=== PATIENT | female | born 1985 | race American Indian/Alaskan Native ===

== ENCOUNTER 2020-07-11 21:33 | Outpatient (CLI) | payer OTHER ==
[2020-07-11 21:58] VITALS: BP 113/78
[2020-07-11] MEDS ORDERED: LACTATED RINGERS 1,000 ML IV ONE (22:31)
[2020-07-11] MEDS ORDERED: TERBUTALINE 1 MG/1 ML INJ SUB-Q ONE (22:34)
[2020-07-11 23:41] LABS: Bacteria,Urine 2+ /HPF (Negative); Bilirubin,Urine NEG (Negative); Blood,Urine LG (Negative); Color,Urine Yellow (Yellow); Mucus,Urine FEW /HPF; Urobilinogen,Urine < 2.0 mg/dL (<2.0)
[2020-07-11 23:58] LABS: WBC,Urine > 182.0 /HPF (0.0-6.0)
[2020-07-12] MEDS ORDERED: TERBUTALINE 1 MG/1 ML INJ SUB-Q ONE (01:15)
== END 2020-07-12 02:45 | disposition home or self-care (01) ==
LOC: TRG 21:33 → APU 21:35 → TRG 07-12 02:45
PROVIDERS: ATTEND Obstetrics & Gynecology
DX: O47.03 False labor before 37 completed weeks of gestation, third trimester (principal); Z3A.34 34 weeks gestation of pregnancy
CPT/HCPCS: 59025; 81001; 96360; 96365; 96372; J0690; J3105; J7120

== ENCOUNTER 2020-08-07 03:00 | Inpatient (IN) | payer OTHER ==
[2020-08-07] MEDS ORDERED: TERBUTALINE 1 MG/1 ML INJ SUB-Q PRN (04:27)
[2020-08-07] MEDS ORDERED: LIDOCAINE (2%) 20 MG/1 ML VIAL 20 ML MDV INFILTRATI ONE (04:27)
[2020-08-07] MEDS ORDERED: ePHEDrine SULFATE 50 MG/1 ML INJ IV PRN (04:27)
[2020-08-07] MEDS ORDERED: fentaNYL 100 MCG/2 ML INJ IV PRN (04:27)
[2020-08-07] MEDS ORDERED: MINERAL OIL 30 ML ORAL LIQD PO PRN (04:27)
[2020-08-07] MEDS ORDERED: LACTATED RINGERS 1,000 ML ONE (04:28)
[2020-08-07] MEDS: LACTATED RINGERS 1,000 ML IV SCH ×3 (04:40→06:44)
--- NOTE | 2020-08-07 04:54 | History and Physical Report ---
History of Present Illness Date of examination: 08/07/20 Date of admission: 08/07/20 04:49 Chief complaint: contractions History of present illness: 35yo at 38w4d presents with complaints of contractions, beginning two nights ago, now increasing in intensity and frequency. She denies LOF, VB. +FM. Her course has been complicated by AMA, Macrosomia, Velamentous cord insertion, and prior CDx1. CD followed by successful . She desires a trial of labor. No additional complaints. Past History Past Medical History: denies: asthma, hypertension, diabetes Past Surgical History: section CAD MANAGER History: denies: chlamydia, hepatitis B, HIV Family/Genetic History: none Social history: no significant social history - Obstetrical History Expected Date of Delivery: 08/17/20 Actual Gestation: 38 Week(s) 4 Day(s) : 5 Para: 2 Hx # Term Pregnancies: 2 Number of Living Children: 2 Medications and Allergies Allergies Allergy/AdvReac Type Severity Reaction Status Date / Time diphenhydramine Allergy Swelling Verified 07/11/20 22:31 [From Benadedl] Home Medications Medication Instructions Recorded Confirmed Last Taken Type No Known Home Medications [No 08/07/20 08/07/20 Unknown History Reported Home Medications] Active Meds: Active Medications Ephedrine Sulfate (Ephedrine Sulfate 50 Mg/1 Ml Inj) 10 mg IV Q2M PRN PRN Reason: Hypotension Fentanyl (Fentanyl 100 Mcg/2 Ml Inj) 100 mcg IV Q2H PRN PRN Reason: Pain,Severe (7-10) LABOR PAIN Lactated Ringer's (Lactated Ringers) 1,000 mls @ 125 mls/hr IV DIRECT JOESPH Last Admin: 08/07/20 04:40 Dose: 125 mls/hr Documented by: Oxytocin/Sodium Chloride (Pitocin/Ns 30 Unit/500ml) 30 units in 500 mls @ 40 mls/hr IV TITR JOESPH Mineral Oil (Mineral Oil 30 Ml Oral Liqd) 30 ml PO QHS PRN PRN Reason: Constipation Terbutaline Sulfate (Terbutaline 1 Mg/1 Ml Inj) 0.25 mg SUB-Q ONCE PRN PRN Reason: Hyperstimulation/Hypertonicity Review of Systems All systems: negative - Vital Signs Vital signs: Vital Signs Pulse BP Pulse Ox 84 120/65 98 08/07/20 03:38 03/13/21 03:38 08/07/20 03:38 Temp Pulse Resp BP Pulse Ox 98.7 F 95 H 120/65 99 08/07/20 04:00 08/07/20 04:53 08/07/20 03:38 08/07/20 04:53 - Physical Exam Breasts: Positive: deferred Cardiovascular: Regular rate Lungs: Positive: Clear to auscultation Abdomen: Positive: normal appearance Genitourinary (Female): Positive: normal external genitalia Uterus: Positive: normal size Extremities: Positive: normal - Obstetrical FHR: category 1 FHR comments: 140s, moderate variability, 15x15 Uterine Contraction Monitor Mode: External Cervical Dilatation: 7 Uterine Contraction Pattern: Regular Uterine Tone Measurement Phase: Resting Uterine Contraction Intensity: Strong/Firm Results All other labs normal. Assessment and Plan Anticipate vaginal delivery - Patient Problems (1) Normal labor Current Visit: Yes Status: Acute Plan to address problem: continue to monitor progress -epidural when requested -augmentation prn PNC: per [facility] O+/AB-/Papwnl/HepB-HIV neg/RPR NR/GC-CT neg/GBS neg (2) Previous delivery affecting Current Visit: Yes Status: Acute Plan to address problem: Prior CD x 1 followed by successful -patient desires TOLAC R/B/A/I reviewed, all questions answered, the patient expressed understanding and desires to proceed (3) AMA (advanced maternal age) multigravida 35+ Current Visit: Yes Status: Acute (4) Velamentous insertion of umbilical cord in third trimester Current Visit: Yes Status: Acute
[2020-08-07] MEDS ORDERED: OXYTOCIN DRIP 30 UNITS/500 ML BAG IV SCH ×2 (05:00→06:00)
[2020-08-07 05:04] LABS: Hematocrit 36.1 % (30.3-42.9); Hemoglobin 12.4 gm/dl (10.1-14.3); Mean Corpuscular HGB Conc 34 % (30-34); Mean Corpuscular Volume 91 fl (79-97); Platelet Count 254 K/mm3 (140-440); Red Blood Count 3.98 M/mm3 (3.65-5.03); Red Cell Distribution Width 13.2 % (13.2-15.2)
[2020-08-07] MEDS ORDERED: NalbUPHINE 10 MG/1 ML INJ IV PRN (05:17)
[2020-08-07] MEDS ORDERED: ONDANSETRON 4 MG/2 ML INJ IV PRN ×2 (05:17→11:20)
[2020-08-07] MEDS ORDERED: diphenhydrAMINE 50 MG/ML VIAL IV PRN (05:17)
[2020-08-07] MEDS ORDERED: NALOXONE 2 MG/2 ML INJ IV PRN (05:17)
[2020-08-07] MEDS ORDERED: fentaNYL-BUPIV 2 MCG/ML-0.125% 200 MCG/100 ML BAG EPIDURAL SCH (06:00)
--- NOTE | 2020-08-07 06:00 | Anesthesia Consultation ---
Anesthesia Consult and Med Hx Date of service: 08/07/20 - Airway Anesthetic Teeth Evaluation: Good ROM Head & Neck: Adequate Mental/Hyoid Distance: Adequate Mallampati Class: Class II Intubation Access Assessment: Probably Good - Pulmonary Exam CTA: Yes - Cardiac Exam Cardiac Exam: RRR - Pre-Operative Health Status ASA Pre-Surgery Classification: ASA2 Proposed Anesthetic Plan: Epidural - Pulmonary Hx Smoking: No Hx Asthma: No Hx Sleep Apnea: No - Cardiovascular System Hx Hypertension: No Hx Heart Attack/AMI: No Hx Angina: No - Central Nervous System Hx Seizures: No Hx Psychiatric Problems: No - Gastrointestinal Hx Gastroesophageal Reflux Disease: No - Endocrine Hx Renal Disease: No Hx Insulin Dependent Diabetes: No Hx Non-Insulin Dependent Diabetes: No Hx Hypothyroidism: No Hx Hyperthyroidism: No - Hematic Hx Anemia: No Hx Sickle Cell Disease: No - Other Systems Hx Alcohol Use: No Hx Obesity: Yes
--- NOTE | 2020-08-07 06:02 | Progress Note ---
Labor Epidural - Labor Epidural Start Time: 05:30 Stop Time: 05:55 Performed by:: DANAE CASTRO Procedure: Patient is requesting combined spinal epidural for labor and pain. H&P, labs were reviewed. All questions and concerns were answered. Informed consent was obtained. Timeout performed. Patient in sitting position on side of bed. Sterile prep and drape was performed. 3 mL 1% lidocaine skin wheal at L [3]-L [4]. 18-gauge Tuohy epidural needle advanced to [id number] using air technique, [10]. 27-gauge spinal needle advanced, positive free-flowing CSF. Spinal dose of [Marcaine 3mg]. Epidural catheter advanced to [15] cm. [negative] Aspiration, [negative] test dose. Sterile dressing applied. Patient tolerated procedure well.
--- NOTE | 2020-08-07 11:19 | Procedure Note ---
OB Delivery Note - Delivery Date of Delivery: 08/07/20 Surgeon: MINNIE PARSONS ([facility]) Estimated blood loss: 200cc - Vaginal Delivery presentation: vertex, compound (left hand) Delivery position: OA Intrapartum events: none Delivery induction: none Delivery augmentation: pitocin Delivery monitor: external FHT, external uterine Route of delivery: Delivery placenta: spontaneous Delivery cord: 3 umbilical vessels Episiotomy: none Delivery laceration: other (1st degree abrasion, hemostatic) Anesthesia: epidural Delivery comments: Excellent maternal effort progressed to of viable female infant at 1055. Head delivered OA, restituted ROT, compound hand delivered easily with anterior shoulder en caul. Infant to maternal abdomen, delayed cord clamping. Pitocin infusing. Placenta delivered spontaneously and intact at 1103. Perineal abrasion noted, hemostasis achieved with pressure, not repaired. Apgars 8/9, weight 6lb 1 5oz. Mother and bonding well. EBL 200cc. - A at 1 minute: 8 at 5 minutes: 9 Infant Gender: Female
[2020-08-07] MEDS ORDERED: LANOLIN/ZINC/DIMETHICONE (LANSINOH) 7 GM TP PRN (11:20)
[2020-08-07] MEDS ORDERED: MAGNESIUM HYDROXIDE (MOM) ORAL LIQD UDC PO PRN (11:20)
[2020-08-07] MEDS ORDERED: WITCH HAZEL/ GLYCERIN PAD TP PRN (11:20)
[2020-08-07] MEDS ORDERED: PROMETHAZINE 25 MG TAB PO PRN (11:20)
[2020-08-07] MEDS ORDERED: PROMETHAZINE 25 MG RECT SUPP PR PRN (11:20)
[2020-08-07] MEDS ORDERED: diphenhydrAMINE 25 MG CAP PO PRN (11:20)
[2020-08-07] MEDS: IBUPROFEN 600 MG TAB PO SCH ×4 (12:00→23:38)
[2020-08-08 01:08] LABS: Hematocrit 30.6 % (30.3-42.9); Hemoglobin 10.8 gm/dl (10.1-14.3)
[2020-08-08] MEDS: IBUPROFEN 600 MG TAB PO SCH ×2 (05:47→12:33)
--- NOTE | 2020-08-08 09:23 | Post Anesthesia Evaluation ---
- Post Anesthesia Evaluation Patient Participated: Yes Airway Patent: Yes Stable Respiratory Function: Yes Nausea/Vomiting: No Temp > 96.8F: Yes Pain Manageable: Yes Adequeate Hydration: Yes Anesthesia Complications: No Block Receding Appropriately: Yes Patient on Ventilator: No Other Comments: Still some weakness/numbness R foot.
--- NOTE | 2020-08-08 11:20 | Progress Note ---
Assessment and Plan A: PPD1 s/p Vital signs stable Mild anemia due to blood loss P: Iron-rich diet Discharge to home today Subjective - Subjective Date of service: 08/08/20 Principal diagnosis: s/p Interval history: PPD1 s/p Patient reports: appetite normal, voiding normally, pain well controlled, ambulating normally [place]: doing well, nursing well Objective - Vital Signs Latest vital signs: Vital Signs Temp Pulse Resp BP BP Pulse Ox 08/08/20 07:46 98.0 F 67 17 97/67 99 08/08/20 05:47 20 08/08/20 01:13 98.4 F 77 18 101/77 08/07/20 23:38 20 08/07/20 20:47 98.4 F 92 H 18 111/65 100 08/07/20 16:05 98.2 F 87 18 124/84 100 08/07/20 13:30 98.4 F 74 18 113/69 100 08/07/20 12:09 88 100 08/07/20 12:07 86 127/75 08/07/20 12:04 87 99 08/07/20 11:59 89 100 08/07/20 11:54 95 H 100 08/07/20 11:49 98 H 100 08/07/20 11:44 93 H 100 08/07/20 11:39 105 H 100 08/07/20 11:34 92 H 100 08/07/20 11:29 42 L 100 08/07/20 11:24 113 H 100 08/07/20 11:23 87 94 08/07/20 11:19 99 H 100 08/07/20 11:15 98.5 F 08/07/20 11:14 111 H 100 08/07/20 11:09 106 H 100 08/07/20 11:04 98 H 100 08/07/20 11:03 94 H 120/74 08/07/20 10:59 119 H 99 08/07/20 10:54 136 H 80 L 08/07/20 10:53 126 H 128/79 08/07/20 10:49 113 H 100 08/07/20 10:44 134 H 100 08/07/20 10:39 115 H 100 08/07/20 10:34 112 H 100 08/07/20 10:29 98 H 99 08/07/20 10:24 95 H 100 08/07/20 10:23 99 H 132/77 Intake and Output 08/07/20 08/08/20 08/08/20 22:59 07:59 15:59 Intake Total Output Total Balance Intake: Oral Intake, Free Water Output: Urine Void Other: Total, Intake Amount Total, Output Amount # Voids Void - Exam Breasts: Present: normal, Abdomen: Present: soft. Absent: distention, tenderness, guarding Uterus: Present: firm, fundal height below umbilicus. Absent: bogginess, tenderness Extremities: Present: normal
--- NOTE | 2020-08-08 11:22 | Discharge Summary ---
Providers - Providers Date of Admission: 08/07/20 04:49 Date of discharge: 08/08/20 Attending physician: SELWYN PHELPS Primary care physician: SELWYN PHELPS Hospitalization Reason for admission: active labor, IUP at term Delivery: Episiotomy: none Laceration: none Other procedures: none complications: none Discharge diagnosis: IUP at term delivered, baby: female Hospital course: Pt arrived in active labor and progressed to . Mild anemia, will increase iron-rich foods. Condition at discharge: Good Disposition: DC-01 TO HOME OR SELFCARE Plan - Discharge Medications Prescriptions: Ibuprofen [Motrin] 600 mg PO Q6H PRN #60 tablet PRN Reason: Pain - Provider Discharge Summary Activity: routine, no sex for 6 weeks, no heavy lifting 4 weeks, no strenuous exercise Diet: routine Instructions: routine Additional instructions: [] Smoking cessation referral if applicable(refer to patient education folder for contact #) [] Refer to [facility]'s [facility] Booklet Call your doctor immediately for: * Fever > 100.5 * Heavy vaginal bleeding ( >1 pad per hour) * Severe persistent headache * Shortness of breath * Reddened, hot, painful area to leg or breast * Drainage or odor from incision. * Keep incision clean and dry at all times and follow doctor's instructions regarding bathing/showering - Follow up plan Follow up: MINNIE PARSONS CNM [Advanced Practice Nurse] - 14 Days (Please call office to schedule appointment in 2-4 weeks.)
[2020-08-08 14:53] VITALS: BP 109/64
== END 2020-08-08 16:30 | disposition home or self-care (01) | DRG 775 ==
LOC: TRG 03:00 → APU 03:11 → TRG 04:27 → LD 04:49 → OB 13:59
PROVIDERS: ADMIT Obstetrics & Gynecology; ATTEND Obstetrics & Gynecology
PROC: 3E0R3BZ Introduction of Anesthetic Agent into Spinal Canal, Percutaneous Approach (ICD-10-PCS; principal; 2020-08-07)
PROC: 00HU33Z Insertion of Infusion Device into Spinal Canal, Percutaneous Approach (ICD-10-PCS; 2020-08-07)
PROC: 10E0XZZ Delivery of Products of Conception, External Approach (ICD-10-PCS; 2020-08-07)
DX: O36.63X0 Maternal care for excessive fetal growth, third trimester, not applicable or unspecified (principal); O34.219 Maternal care for unspecified type scar from previous cesarean delivery; O32.6XX0 Maternal care for compound presentation, not applicable or unspecified; Z37.0 Single live birth; O43.123 Velamentous insertion of umbilical cord, third trimester; O99.214 Obesity complicating childbirth; O71.82 Other specified trauma to perineum and vulva; O99.03 Anemia complicating the puerperium; D50.0 Iron deficiency anemia secondary to blood loss (chronic); Z3A.38 38 weeks gestation of pregnancy; Z20.822 Contact with and (suspected) exposure to COVID-19; Z88.8 Allergy status to other drugs, medicaments and biological substances
CPT/HCPCS: 36415; 59025; 85014; 85018; 85027; 86592; 86850; 86900; 86901; G0378; A6250; J2590; J7120; U0003